=== PATIENT | female | born 1990 | race Caucasian/White ===

== ENCOUNTER 2018-02-17 08:00 | Inpatient (IN) ==
[2018-02-17] MEDS ORDERED: Famotidine 20 MG/2 ML VIAL IVP PRN (08:17)
[2018-02-17] MEDS ORDERED: Ondansetron 4 MG/2 ML VIAL IVP PRN (08:17)
[2018-02-17] MEDS ORDERED: Naloxone 0.4 MG/ML INJ IVP PRN (08:17)
[2018-02-17] MEDS ORDERED: *HR* Nalbuphine 10 MG/ML AMPUL IVP PRN (08:17)
[2018-02-17] MEDS ORDERED: Metoclopramide 10 MG/2 ML VIAL IVP PRN (08:17)
[2018-02-17] MEDS ORDERED: Oxytocin 20 units/ LR 1000 mL 20 UNIT/1,000 ML BAG IVC SCH ×2 (08:30→19:39)
[2018-02-17] MEDS ORDERED: D5% in 0.45% NACL 1,000 ML IVC ONE (09:20)
[2018-02-17] MEDS ORDERED: Ringers Solution, Lactated 1,000 ML ONE ×3 (09:20→16:13)
--- NOTE | 2018-02-17 09:28 | OB/GYN History & Physical ---
Date of Encounter: 02/17/18 Time of Encounter: 09:23 Assessment and Plan (1) 40 weeks gestation of Current visit: Yes Status: Acute Here for induction of labor (2) Postmaturity , 40-42 weeks gestation Current visit: Yes Status: Acute Here for induction of labor, reassuring NST on 02/16. Patient symptomatic with external hemorrhoids (3) External hemorrhoids Current visit: Yes Status: Acute The patient has had acute onset of external hemorrhoids which have been resistant to treatment. (4) Rubella non-immune status, antepartum Current visit: Yes Status: Chronic Vaccinated (5) renal anomaly, single gestation Current visit: Yes Status: Acute Patient is scheduled [facility] ([facility]) Herniated intervertebral disc of lumbar spine Current visit: Yes Status: Chronic The patient has been seen prior to labor for evaluation for labor epidural. This was approved by Dr. Haynes History of Present Illness Chief complaint: 40w1d Augmentation HPI: Ms. Noel is a 28 year old female with an EDC of 02/16/18 currently 40 weeks 1 day who presents for augmentation of labor. She was seen in the office on 02/16 for a nonstress test due to postdates and was having spontaneous contractions every 3-5 minutes. The fetus has remained active. She has made a small amount of cervical change since her exam yesterday and has continued to have contractions. She denies any vaginal bleeding or loss of fluid. 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 The patient has been seen by M and imaging has shown stability of the right renal collecting system. Plan is to have follow-up after delivery in 4-6 weeks at [facility] with neonatology and neurology specialists. Currently the patient is symptomatic with external hemorrhoids which are extremely bothersome to her and have been present for just under 1 week. Labs: Blood type A positive, rubella nonimmune, varicella immune, GBS negative Past Med Surg Social Fam HX - Past Medical History Attestation: Yes The following information was validated with the patient. Source: patient, old records reviewed Medical history: other (Herniated disc) Psychiatric history: anxiety, depression - Past Surgical History Surgical History: other - Social History Smoking Status: Current some day smoker Packs per day: 1 pk a week Smokeless Tobacco Status: No Alcohol use: rarely Drug use: none - Family History Mother Age: 54 Hx Family Respiratory Disorders: Yes (asthma) Hx Family Psychosocial Disorders: Yes (depression) Obstetrical History - Pregnancies : 1 Medications and Allergies Ferrous Sulfate 325 mg PO DAILY 02/17/18 [History] Pnv Cmb#21/Iron/Folic Acid [ Complete Caplet] 1 each PO DAILY 02/17/18 [ History] 3 Allergy/AdvReac Type Severity Reaction Status Date / Time No Known Allergies Allergy Verified 02/17/18 08:51 Review of System OB All systems PM: reviewed and no additional remarkable complaints except as stated - Constitutional Constitutional ROS IM: weight gain - Gastrointestinal Gastrointestinal: other (Symptomatic external hemorrhoids) Exam - Vital Signs Vital signs: Afebrile, vital signs stable - Constitutional Constitutional: well developed, well nourished, no acute distress, average body habitus - HEENT HEENT: Normocephaly, Mucus Membranes Moist - Neck Neck exam: normal inspection, supple - Lungs Respiratory exam: CTAB - Cardiovascular Cardiovascular exam: RRR - Breasts Breast: bilateral: normal (Gravid) - Abdomen Abdomen: Present: bowel sounds normal, gravid, non tender - Extremities Extremities exam: normal inspection, warm Deep Tendon Reflex Grade: 3+ Normal But Brisk - Vulva Vulva: bilateral: normal - Vagina Vagina: Present: normal moisture - Cervix Dilation: 3 (vtx) Effacement: 90 Station: 0 - Anus/Rectum Anus/Rectum: Present: hemorrhoids Results All other labs normal. - VTE Reasons for not Prescribing Prophylaxis: Treatment not Indicated - Low risk for VTE
[2018-02-17] MEDS ORDERED: D5% in 0.45% NACL 1,000 ML IVC SCH (09:30)
[2018-02-17] MEDS ORDERED: Ringers Solution, Lactated 500 ML IVC ONE (09:38)
--- NOTE | 2018-02-17 09:42 | OB Labor Progress Note ---
Date of Encounter: 02/17/18 Time of Encounter: 09:40 Labor Progress Note - Subjective Subjective: Patient uncomfortable in her lower back and with her hemorrhoids. She is requesting an epidural. - Vital Signs Vital Signs: Afebrile, vital signs stable - Cervix Cervix: 3/90/0, vertex - Heart Tones Heart Tones: 120s baseline, CAT 1 - [place]: Contractions 3-5 minutes, spontaneous - Interventions Interventions: 40 week 1 day IUP for evaluation of labor, augmentation - Plan Plan: Amniotomy with a small amount of blood tinged fluid. IUPC placed without difficulty. Anesthesia notified for labor epidural placement. Augment with Pitocin as needed
[2018-02-17] MEDS ORDERED: Epidural Premix (fent/bupiv) 110 ML EP SCH (09:45)
[2018-02-17] MEDS ORDERED: Epidural Premix (fent/bupiv) 110 ML EP ONE (09:45)
--- NOTE | 2018-02-17 10:20 | Anesthesia Evaluation PreOp ---
Date of Encounter: 02/17/18 Time of Encounter: 10:18 - Past History Planned Operation: FAISAL Cardiac History: Denies any Significant Hx Pulmonary History: Smoker [employer] History: Denies Any Significant HX Other Medical History: Other (hx fall in 2015 causing one lumbar herniated disk and two additional lumbar bulging disks; patient in 2015 had symptoms of radicular pain and localized back pain at the site of injury (also stiffness); these symptoms have since resolved and she never had any neurological deficits. Previous consent per Dr. Haynes.) Anesthesia History: No Prior Anesthetic Complications : Yes Alcohol Use: rarely Drug use: none Medications and Allergies Ferrous Sulfate 325 mg PO DAILY 02/17/18 [History] Pnv Cmb#21/Iron/Folic Acid [ Complete Caplet] 1 each PO DAILY 02/17/18 [ History] 3 Allergy/AdvReac Type Severity Reaction Status Date / Time No Known Allergies Allergy Verified 02/17/18 08:51 - Meds/Allergy Pre-op Review Medications Reviewed: Yes Allergies Reviewed: Yes Beta Blockers on Current Med List: No Anesthesia Exam O2 Sat Height 1.65 m Weight 76.6 kg NPO (# of Hours): 4 Pain Scale: 8 Pain Scale Used: Numeric (1 - 10) - HEENT Pupil (Motor): Pupils equal Mallampati: II Teeth: Normal Oral Opening: Greater than 3 - [employer]IST LOC: Oriented [employer] Motor: Normal RUE, Normal LUE, Normal RLE, Normal LLE, Normal Face [employer] Sensory: Normal: RUE, LUE, RLE, LLE, Face - Cardiac Rhythm: Regular Murmur: None JVD: No Carotid Bruit: No - Pulmonary Breath Sounds: bilateral Clear Respiratory Effort: Symmetrical Anesthesia Assess/Plan ASA Score: 2 Modified Spalding Scale for Level of Consciousness: Cooperative, oriented, and tranquil Anesthetic Plan: General (plan b), Regional (plan a) Autologous Blood: Yes Monitoring Plan: Standard Monitors
[2018-02-17 10:22] LABS: Basophils % 0.2 %; Eosinophils # 0.1 K/mcL (0.0-0.6); Eosinophils % 0.6 %; Hematocrit 33.5 % (35.3-44.9); Hemoglobin 11.6 g/dL (11.5-15.4); Immature Granulocytes % 1.9 % (0-4); Lymphocytes # 1.5 K/mcL (0.6-4.6); Lymphocytes % 12.3 %; Mean Corpuscular HGB Conc 34.6 g/dL (31.6-35.5); Mean Corpuscular Hemoglobin 31.8 pg (28.0-33.3); Mean Corpuscular Volume 91.8 fL (83.0-100.0); Mean Platelet Volume 10.5 fL (9.4-12.4); Monocytes # 0.8 K/mcL (0.0-1.3); Monocytes % 6.1 %; Neutrophils # 9.8 K/mcL (1.6-8.9); Platelet Count 311 K/mcL (140-400); Red Blood Count 3.65 M/mcL (3.82-4.97); Red Cell Distribution Width 13.5 % (11.5-14.5); Segmented Neutrophils % 78.9 %
--- NOTE | 2018-02-17 10:22 | Anesthesia Procedures ---
Date of Encounter: 02/17/18 Time of Encounter: 10:20 Procedures: Anesthesia - Epidural/Spinal Patient ID/Chart reviewed: Yes Patient examined: Yes OB Eval: Gestational age: 40.1 OB Eval: : 1 OB Eval: Hx Para: 0 OB Eval: Dilated at (cm): 3 OB Eval: Contractions: Non-stressed pattern Consent Obtained: Yes Supplemental Oxygen: None/Room Air Site Prep: Aseptic Technique, Sterile prep and drape, Povidone-Iodine 1% Patient position: upright Local Anesthetic: Lidocaine 1% Amount of Local Anesthetic used: 3 Touhy Needle Gauge: 18 Touhy Needle Depth (cm): 8 Catheter Depth at Skin (cm): 20 Test Dose (1.5% Lido + Epi): Volume given (mls): 5 Test Dose Result: Negative Loading Dose: Other: 10ml from epidural pharm bag Loading Dose Administered: Thru Catheter Infusion Med: 0.125% Bupivacaine w/ 2 mcg/ml Fentanyl Infusion Rate (mls/hr): 14 ([id number]) Catheter Secured in Place: Tegaderm, Tape Interspace Used: L4-L5 Loss of Resistance (MAK): Yes Blood: No CSF: No Paresthesia: No Procedure: pt tolerated procedure well. no complications. vss. fhr stable. see nursing notes for complete vitals.
[2018-02-17 10:30] LABS: Amphetamine Screen,Urine Negative ng/mL (Cutoff=1000); Barbiturate Screen,Urine Negative ng/mL (Cutoff=200); Benzodiazepines Screen,Urine Negative ng/mL (Cutoff=200); Cannabinoid Screen,Urine Negative ng/mL (Cutoff = 50); Cocaine Screen,Urine Negative ng/mL (Cutoff= 300); Opiate Screen,Urine Negative ng/mL (Cutoff=300); Phencyclidine Screen,Urine Negative ng/mL (Cutoff=25)
[2018-02-17] MEDS ORDERED: Famotidine 20 MG/2 ML VIAL IVP ONE (11:43)
--- NOTE | 2018-02-17 17:06 | OB/GYN Procedure Note ---
Delivery - Delivery Date: 02/17/18 Provider: Lacey Murray Intrapartum events: meconium Delivery induction: none Delivery augmentation: rupture of membranes, pitocin Delivery monitor: external FHT, external uterine, internal uterine Anesthesia: epidural Quantitated Blood Loss: 100 - (s) A Infant Delivery Date: 02/17/18 Delivery Time: 16:34 Presentation: vertex Position: BOBBY Route of delivery: Gender: Female Viability: Viable Pounds: 7 Ounces: 9 Weight Gram: 3.495 kg at 1 minute: 8 at 5 mins: 9 Shoulder Dystocia: not encountered Specimens collected: cord blood Placenta: spontaneous Cord: 3 umbilical vessels - Repair Episiotomy: none Laceration Description: Periurethral, Vaginal, Superficial (No repair required) - Complications Delivery complications: meconium Delivery comments: IThe patient was complete and pushing with epidural anesthesia with a spontaneous vaginal delivery in the BOBBY position of a vigorous female weighing 7 lbs.9 oz. with Apgars of 8 at 1 minute and 9 at 5 minutes. Infant was placed on the maternal abdomen. The cord was clamped and cut after pulsations ceased. Cord blood obtained. The placenta was delivered spontaneous and intact. There was a right periurethral laceration and a left vaginal wall laceration which were hemostatic and unrepaired. Estimated blood loss 100 mL, complications none - Disposition Mom disposition: stable in LDR [place] disposition: stable in LDR
[2018-02-17] MEDS ORDERED: Measles/Mumps/Rubella Vacc 0.5 ML VIAL SQ PRN (19:39)
[2018-02-17] MEDS ORDERED: Acetaminophen 325 MG TABLET PO PRN (19:39)
[2018-02-17] MEDS ORDERED: Benzocaine/Menthol 56 GM AEROSOL SPRAY TP PRN (19:39)
[2018-02-17] MEDS ORDERED: Oxytocin 20 units/ LR 1000 mL 20 UNIT/1,000 ML BAG IVC ONE (19:41)
[2018-02-18 04:12] LABS: Basophils # 0.1 K/mcL (0.0-0.2); Basophils % 0.3 %; Eosinophils # 0.1 K/mcL (0.0-0.6); Eosinophils % 0.8 %; Hematocrit 34.2 % (35.3-44.9); Hemoglobin 11.8 g/dL (11.5-15.4); Immature Granulocytes % 0.8 % (0-4); Lymphocytes # 1.5 K/mcL (0.6-4.6); Lymphocytes % 9.1 %; Mean Corpuscular HGB Conc 34.5 g/dL (31.6-35.5); Mean Corpuscular Hemoglobin 31.8 pg (28.0-33.3); Mean Corpuscular Volume 92.2 fL (83.0-100.0); Mean Platelet Volume 10.2 fL (9.4-12.4); Monocytes # 0.9 K/mcL (0.0-1.3); Monocytes % 5.4 %; Neutrophils # 13.8 K/mcL (1.6-8.9); Platelet Count 256 K/mcL (140-400); Red Blood Count 3.71 M/mcL (3.82-4.97); Red Cell Distribution Width 13.2 % (11.5-14.5); Segmented Neutrophils % 83.6 %
[2018-02-18] MEDS: Ibuprofen 600 MG TABLET PO SCH ×2 (04:13→10:55)
[2018-02-18 08:21] VITALS: BP 112/77
[2018-02-18] MEDS ORDERED: Prenatal Vit/FA 1 EACH TABLET PO SCH (09:00)
--- NOTE | 2018-02-18 12:06 | Discharge Summary ---
Date of Encounter: 02/18/18 Time of Encounter: 12:01 - Discharge Diagnosis (1) Vaginal delivery Priority: Primary Status: Acute Comments: Doing well. Tolerating regular diet, voiding and ambulating without difficulty. Baby well. Pain well controlled with Ibuprofen. Lochia light and without clots. Complaints external hemorroids. Desires to go home today. - Discharge Medications Prescriptions: Ibuprofen [Motrin] 600 mg PO Q6HR #30 tablet Docusate [Colace] 100 mg PO BID #20 capsule Home Medications: Ferrous Sulfate 325 mg PO DAILY 02/17/18 [History] Pnv Cmb#21/Iron/Folic Acid [ Complete Caplet] 1 each PO DAILY 02/17/18 [ History] Acetaminophen [Tylenol] 650 mg PO Q6HR PRN tablet 02/18/18 [Rx] Benzocaine/Menthol [place] [Dermoplast [place]] 1 appl TP QID PRN aerosol 02/18/18 [Rx] Dibucaine [Nupercainal] 1 appl TP BID PRN tube 02/18/18 [Rx] Docusate [Colace] 100 mg PO BID #20 capsule 02/18/18 [Rx] Hydrocortisone/Pramoxine [Epifoam] 1 appl TP TID bottle 02/18/18 [Rx] Ibuprofen [Motrin] 600 mg PO Q6HR #30 tablet 02/18/18 [Rx] Allergies/Adverse Reactions: 3 Allergy/AdvReac Type Severity Reaction Status Date / Time No Known Allergies Allergy Verified 02/17/18 08:51 Data Procedures and tests throughout hospitalization: Laboratory Tests 02/17/18 02/17/18 02/18/18 08:44 08:44 04:00 WBC 12.5 H 16.5 H RBC 3.65 L 3.71 L Hgb 11.6 11.8 Hct 33.5 L 34.2 L MCV 91.8 92.2 MCH 31.8 31.8 MCHC 34.6 34.5 RDW 13.5 13.2 Plt Count 311 256 MPV 10.5 10.2 Immature Gran % 1.9 0.8 Seg Neutrophils % 78.9 83.6 Lymphocytes % 12.3 9.1 Monocytes % 6.1 5.4 Eosinophils % 0.6 0.8 Basophils % 0.2 0.3 Neutrophils # 9.8 H 13.8 H Lymphocytes # 1.5 1.5 Monocytes # 0.8 0.9 Eosinophils # 0.1 0.1 Basophils # 0.0 0.1 Urine Opiates Screen Negative Ur Barbiturates Screen Negative Ur Phencyclidine Scrn Negative Ur Amphetamines Screen Negative U Benzodiazepines Scrn Negative Urine Cocaine Screen Negative U Marijuana (THC) Screen Negative Labs on day of discharge: Labs from last 24 hours 02/18/18 04:00 WBC 16.5 H RBC 3.71 L Hgb 11.8 Hct 34.2 L MCV 92.2 MCH 31.8 MCHC 34.5 RDW 13.2 Plt Count 256 MPV 10.2 Immature Gran % 0.8 Seg Neutrophils % 83.6 Lymphocytes % 9.1 Monocytes % 5.4 Eosinophils % 0.8 Basophils % 0.3 Neutrophils # 13.8 H Lymphocytes # 1.5 Monocytes # 0.9 Eosinophils # 0.1 Basophils # 0.1 Date of admission: 02/17/18 08:03 Primary care physician: PCP BRIAN Consults: 02/17/18 19:39 Consult to [place] Inspector [CONS] Routine Comment: Vaginal delivery, consult needed Discharging clinician: Mini Christiansen Anticipated date of discharge: 02/18/18 - Patient Status Disposition: Home, Self-Care Condition: Good Functional capacity at discharge: independent ambulation Overall status at discharge: patient is progressing back to baseline - Discharge Instructions Follow Up With: NONE,PCP [Primary Care Provider] - Lacey Murray MD [Partnered Physician] - - Diet and Activity Activity: resume usual activities as tolerated Diet: advance to your usual diet Hospital Course Reason for admission: induction of labor, IUP at term Delivery: Episiotomy: none Laceration: other (Right periurethral and left vaginal wall, superficial,. Both hemostatic and unrepaired) Other procedures: none Discharge diagnosis: IUP at term delivered baby: female Time spent discussing smoking cessation with patient: 3 to 10 minutes Time Attestation: Total time spent providing and/or coordinating discharge services: Time Spent: Less than 30 minutes Exam - Constitutional Vitals: Temp Pulse Resp BP Pulse Ox 97.6 F 82 16 112/77 98 02/18/18 08:20 02/18/18 08:20 02/18/18 08:20 02/18/18 08:20 02/18/18 04:15 General appearance IM: cooperative, A&O X 3, pleasant, no acute distress, answers questions appropriately - Respiratory Respiratory exam: Present: CTAB - Cardiovascular Cardiovascular exam IM: Present: RRR - GI/Abdominal GI/Abdominal exam IM: normal bowel sounds - Rectal Rectal exam: deferred - Uterine Tone: Firm Uterus Position: At Umbilicus, Midline - Extremities Exam Extremities exam IM: Present: full ROM, normal inspection, radial pulses palpable and symmetrical - Neurological Exam Neurological exam: alert, normal gait, oriented X3
== END 2018-02-18 16:00 | disposition home or self-care (01) | DRG 560 ==
LOC: 1NENULAB 08:03 → 1NENUOBS 19:54
PROVIDERS: ADMIT Obstetrics & Gynecology; ATTEND Obstetrics & Gynecology